=== PATIENT | male | born 1950 | race Caucasian/White ===

== ENCOUNTER 2023-12-29 19:12 | Observation (INO) ==
[2023-12-29] MEDS ORDERED: Iodixanol (CONTRAST) 320 MG/ML 100 ML SDV IV ONE (19:39)
[2023-12-29 19:40] LABS: ABS Basophils 0.1 10^3/uL (0.0-0.1); ABS Eosinophils 0.2 10^3/uL (0.0-0.5); ABS Lymphocytes 1.1 10^3/uL (1.0-4.8); ABS Monocytes 0.6 10^3/uL (0.0-1.1); ABS Neutrophils 5.3 10^3/uL (1.5-7.6); ABS Nucleated RBC 0.01 10^3/ul; Eosinophil % 2.2 %; Hematocrit 38.2 % (38-53); Hemoglobin 12.8 g/dL (13.2-16.3); Lymphocyte % 14.9 %; Mean Corpuscular Hemoglobin 30.2 pg (27-33); Mean Corpuscular Hgb Conc 33.6 g/dL (31-36); Mean Corpuscular Volume 89.9 fL (80-97); Nucleated Red Blood Cells % 0.1 %/100WBC (0.0-0.8); Platelet Count 335 10^3/uL (150-450); Red Blood Count 4.25 10^6/uL (4.06-5.63); Red Cell Distribution Width 13.3 % (12-17); White Blood Count 7.2 10^3/uL (3.6-10.2)
[2023-12-29 19:49] LABS: Activated Partial Thrombo Time 29.5 seconds (26.0-38.0); INR 0.99 (0.83-1.13)
[2023-12-29] MEDS: Ondansetron 4 mg VIAL 2 MG/ML 2 ml VIAL IV ONE (20:04)
[2023-12-29 20:22] LABS: Albumin 4.6 g/dL (3.2-5.2); Albumin/Globulin Ratio 2.4 (1-3); Calcium 9.4 mg/dL (8.6-10.3); Creatinine, Serum 1.24 mg/dL (0.67-1.17); Direct Bilirubin 0.1 mg/dL (0.03-0.18); Globulin 1.9 g/dL (2-4); HDL Cholesterol 59.7 mg/dL; Indirect Bilirubin 0.4 mg/dL (0.3-1.0); Potassium 4.1 mmol/L (3.5-5.0); Total Bilirubin 0.5 mg/dL (0.2-1.0); Total Protein 6.5 g/dL (6.4-8.9); eGFR CKD-EPI 62.2 (>60)
[2023-12-29] MEDS ORDERED: Iohexol 350 (CONTRAST) 500 ML MDV IV ONE (20:57)
[2023-12-29 21:01] LABS: Urine Appearance Clear; Urine Bilirubin Negative (Negative); Urine Blood Negative (Negative); Urine Color Light-Yellow; Urine Glucose Negative (Negative); Urine Ketones Negative (Negative); Urine Nitrite Negative (Negative); Urine Protein Trace (Negative); Urine Specific Gravity >1.050 (1.002-1.030); Urine Urobilinogen Negative (Negative)
[2023-12-29 21:08] LABS: High Sensitivity Troponin 1 Hr 4 pg/mL (<20)
[2023-12-29] MEDS: Aspirin EC 325 mg TAB.EC PO ONE (21:08)
[2023-12-29] MEDS ORDERED: Sulfur Hexaflouride MICROSPHR 25 MG VIAL IV ONE (23:01)
[2023-12-30] MEDS: Enoxaparin 40 MG/0.4 ML SYR SUBCUT SCH (00:57)
[2023-12-30] MEDS ORDERED: Lactated Ringers 1000 ml BAG 1,000 ML IV SCH (12:00)
[2023-12-30] MEDS: Lactated Ringers 1000 ml BAG 1,000 ML IV ONE (14:15)
[2023-12-30 15:39] VITALS: BP 0/0
== END 2023-12-30 15:38 | disposition home or self-care (01) ==
LOC: ED 19:12 → EDHOLD 19:12 → SUATTDRO 23:01 → EDHOLD 12-30 15:37
PROVIDERS: ADMIT Internal Medicine; ATTEND Student in an Organized Health Care Education/Training Program